=== PATIENT | male | born 1960 | race African-American/Black ===

== ENCOUNTER 2021-08-16 08:04 | Emergency (ER) | payer SELFPAY ==
[~2021-08-16] VITALS: Ht 185.4 cm; Wt 88.0 kg
[2021-08-16] MEDS ORDERED: ACETAMINOPHEN 325MG TABLET PO ONE (08:30)
[2021-08-16 10:12] VITALS: BP 126/76
== END 2021-08-16 10:13 | disposition home or self-care (01) ==
LOC: ER 08:04
DX: M79.671 Pain in right foot (principal); M79.672 Pain in left foot; I10 Essential (primary) hypertension; J45.909 Unspecified asthma, uncomplicated; F17.290 Nicotine dependence, other tobacco product, uncomplicated; F14.10 Cocaine abuse, uncomplicated; F12.10 Cannabis abuse, uncomplicated
CPT/HCPCS: 99283